=== PATIENT | male | born 1960 | race Two or more races ===

== ENCOUNTER 2022-01-08 15:19 | Outpatient (CLI) | payer OTHER | END 2022-01-08 15:26 | disposition home or self-care (01) | LOC: RAD 15:19 | PROVIDERS: ATTEND Orthopaedic Surgery | DX: M25.551 Pain in right hip (principal); M25.552 Pain in left hip; M25.561 Pain in right knee; M25.562 Pain in left knee ==

== ENCOUNTER 2022-01-22 07:38 | Outpatient (CLI) | payer OTHER | END 2022-01-22 07:41 | disposition home or self-care (01) | LOC: MRI 07:38 | PROVIDERS: ATTEND Orthopaedic Surgery | DX: M25.512 Pain in left shoulder (principal) | CPT/HCPCS: 73222 ==

== ENCOUNTER → 2022-02-07 | Emergency (ER) | payer OTHER ==
[~2022-02-07] VITALS: Ht 175.3 cm; Wt 98.9 kg
[~2022-02-07] MED LIST: COZAAR25 MG PO; GLIMEPIRIDE2 MG; GLUMETZA1000 MG PO
== END | disposition left against medical advice (07) ==
LOC: ER 14:07
DX: M25.551 Pain in right hip (principal)

== ENCOUNTER 2022-03-07 07:28 | Outpatient (CLI) | payer OTHER ==
[2022-03-07] MEDS ORDERED: SIMVASTATIN5 MG PO (13:16)
== END 2022-03-07 07:37 | disposition home or self-care (01) ==
LOC: LAB 07:28
PROVIDERS: ATTEND Orthopaedic Surgery
DX: D64.9 Anemia, unspecified (principal); E88.9 Metabolic disorder, unspecified; D68.8 Other specified coagulation defects; N39.0 Urinary tract infection, site not specified; A49.02 Methicillin resistant Staphylococcus aureus infection, unspecified site; E11.65 Type 2 diabetes mellitus with hyperglycemia; I10 Essential (primary) hypertension; Z76.89 Persons encountering health services in other specified circumstances

== ENCOUNTER 2022-03-12 08:45 | Inpatient (IN) | payer OTHER ==
[~2022-03-12] VITALS: Ht 175.3 cm; Wt 99.8 kg
[~2022-03-12 08:45] MED LIST changes: +SIMVASTATIN5 MG PO
[2022-03-12] MEDS ORDERED: PEPCI PO (13:37)
[2022-03-12] MEDS ORDERED: GLUMETZA1000 MG PO (13:37)
[2022-03-12] MEDS ORDERED: SIMVASTA PO (13:37)
[2022-03-17] MEDS ORDERED: SIMVASTATIN20 MG PO (07:58)
[2022-03-17] MEDS ORDERED: PEPCID40 MG PO (07:58)
== END 2022-03-19 16:12 | DRG 470 ==
LOC: SURH 03-17 05:26 → O/R 03-17 05:26 → SURH 03-17 08:45
PROVIDERS: ADMIT Orthopaedic Surgery; ATTEND Orthopaedic Surgery
PROC: 0SRB0JZ Replacement of Left Hip Joint with Synthetic Substitute, Open Approach (ICD-10-PCS; principal; 2022-03-17 10:30)
DX: M16.12 Unilateral primary osteoarthritis, left hip (principal); I10 Essential (primary) hypertension; E11.9 Type 2 diabetes mellitus without complications; Z79.4 Long term (current) use of insulin; Z20.822 Contact with and (suspected) exposure to COVID-19

== ENCOUNTER 2022-06-26 12:35 | Outpatient (CLI) | payer OTHER ==
[~2022-06-26 12:35] MED LIST changes: +PEPCI PO; +PEPCID40 MG PO; +SIMVASTA PO; +SIMVASTATIN20 MG PO
== END 2022-06-26 12:38 | disposition home or self-care (01) ==
LOC: RAD 12:35
PROVIDERS: ATTEND Orthopaedic Surgery
DX: M17.11 Unilateral primary osteoarthritis, right knee (principal); M23.222 Derangement of posterior horn of medial meniscus due to old tear or injury, left knee; M54.50 Low back pain, unspecified

== ENCOUNTER 2022-07-10 07:01 | Outpatient (CLI) | payer OTHER | END 2022-07-10 07:13 | disposition home or self-care (01) | LOC: LAB 07:01 | PROVIDERS: ATTEND Orthopaedic Surgery | DX: D50.9 Iron deficiency anemia, unspecified (principal); D68.8 Other specified coagulation defects; N39.0 Urinary tract infection, site not specified; E11.9 Type 2 diabetes mellitus without complications; E03.9 Hypothyroidism, unspecified; E55.9 Vitamin D deficiency, unspecified; I10 Essential (primary) hypertension ==

== ENCOUNTER 2022-09-17 09:45 | Outpatient (CLI) | payer OTHER | END 2022-09-17 10:05 | disposition home or self-care (01) | LOC: RAD 09:45 | PROVIDERS: ATTEND Orthopaedic Surgery | DX: M25.551 Pain in right hip (principal); M16.11 Unilateral primary osteoarthritis, right hip; M25.552 Pain in left hip ==

== ENCOUNTER 2023-01-08 07:04 | Outpatient (CLI) | payer OTHER | END 2023-01-08 07:08 | disposition home or self-care (01) | LOC: RAD 07:04 | PROVIDERS: ATTEND Orthopaedic Surgery | DX: Z96.642 Presence of left artificial hip joint (principal) ==